=== PATIENT | male | born 1955 | race Caucasian/White ===

== ENCOUNTER 2022-08-19 15:43 | Observation (INO) ==
[2022-08-19] MEDS ORDERED: Magnesium Hydroxide LIQ 30 ML UDC PO PRN (16:23)
[2022-08-19] MEDS ORDERED: Ondansetron ODT 4 mg TAB 4 MG TAB PO PRN (16:23)
[2022-08-19] MEDS ORDERED: Lactulose 30 ml UDC PO PRN (16:23)
[2022-08-19] MEDS ORDERED: Ondansetron 4 mg VIAL 2 MG/ML 2 ml VIAL IV PRN (16:23)
[2022-08-19 17:12] LABS: ABS Basophils 0.1 10^3/ul (0-0.2); ABS Lymphocytes 0.7 10^3/ul (1.0-4.8); ABS Neutrophils 3.8 10^3/ul (1.5-7.7); Eosinophil % 0.5 %; Hematocrit 46 % (42-52); Lymphocyte % 11.8 %; Mean Corpuscular HGB Conc 35 g/dL (31-36); Mean Corpuscular Hemoglobin 37 pg (27-31); Mean Corpuscular Volume 105 fL (80-94); Mean Platelet Volume 7.4 fL (7.4-10.4); Nucleated Red Blood Cells % 0.2; Platelet Count 169 10^3/uL (150-450); Red Blood Count 4.36 10^6 /uL (4.18-5.48); Red Cell Distribution Width 16 % (10-15); White Blood Count 5.6 10^3/uL (3.5-10.8)
[2022-08-19 17:22] LABS: Activated Partial Thrombo Time 28.8 seconds (26.0-38.0); INR 1.21 (0.88-1.18)
[2022-08-19 17:38] LABS: Calcium 9.8 mg/dL (8.6-10.3); Potassium 4.1 mmol/L (3.5-5.0); eGFR CKD-EPI 47.8 (>60)
[2022-08-19] MEDS: Heparin 5000 UNITS/ML 1 mL VIAL SUBCUT SCH ×2 (21:52→22:06)
[2022-08-20] MEDS ORDERED: HYDROmorphone 0.5 MG/0.5 ML SYRINGE IV SCH ×2
[2022-08-20] MEDS ORDERED: Phenylephrine 40 mcg/mL 10mL (400mcg) SYRINGE IV SCH
[2022-08-20] MEDS ORDERED: HYDROmorphone 1 MG/1 ML SYRINGE IV SCH
[2022-08-20] MEDS ORDERED: Acetaminophen IV 1 GM/100ML 1,000 MG/100 ML BAG IV SCH
[2022-08-20] MEDS ORDERED: Dexamethasone IV 4 MG/ML VIAL 1 ml VIAL IV SLOW PU SCH
[2022-08-20] MEDS ORDERED: Ondansetron 4 mg VIAL 2 MG/ML 2 ml VIAL IV SCH
[2022-08-20] MEDS ORDERED: Propofol 10 MG/ML 20 ML BTL IV SCH
[2022-08-20] MEDS ORDERED: fentaNYL 100 mcg/2 ml 50 MCG/ML VIAL IV SCH ×3
[2022-08-20] MEDS ORDERED: Midazolam 2 mg/2 ml VIAL 1 mg/ml 2 ml VIAL (2 mg) IV SLOW PU SCH
[2022-08-20] MEDS ORDERED: Lidocaine 2% PF 5 ML VIAL INJ SCH
[2022-08-20] MEDS: Lactated Ringers 1000 ml BAG 1,000 ML IV SCH ×2 (08:55→20:47)
[2022-08-20] MEDS: Morphine 2 MG/ML SYRINGE IV PRN ×2 (08:56→21:12)
[2022-08-20] MEDS ORDERED: ceFAZolin 2 GM in NS PREMIX 2 GM/100 ML BAG IVPB ONE (12:06)
[2022-08-20] MEDS ORDERED: Ondansetron 4 mg VIAL 2 MG/ML 2 ml VIAL IV PRN ×2 (15:46→16:22)
[2022-08-20] MEDS ORDERED: Prochlorperazine 5 mg/ml 2 ml VIAL (10 mg) IV PRN (15:46)
[2022-08-20] MEDS ORDERED: Naloxone 0.4 mg VIAL 0.4 mg/ml 1 ml VIAL IV PRN ×2 (15:46→16:22)
[2022-08-20] MEDS: HYDROmorphone 1 MG/1 ML SYRINGE IV PRN ×2 (15:55→16:21)
[2022-08-20] MEDS: fentaNYL 100 mcg/2 ml 50 MCG/ML VIAL IV PRN ×3 (16:01→16:42)
[2022-08-20] MEDS ORDERED: fentaNYL 100 mcg/2 ml 50 MCG/ML VIAL IV PRN (16:22)
[2022-08-20] MEDS ORDERED: HYDROmorphone 1 MG/1 ML SYRINGE IV PRN (16:22)
[2022-08-20] MEDS: Vitamin THERAPEUTIC TAB PO SCH (20:08)
[2022-08-20] MEDS: Potassium Chlor 10 meq TAB PO SCH (20:08)
[2022-08-21 06:35] LABS: Hematocrit 39 % (42-52); Hemoglobin 13.5 g/dL (14.0-18.0); Mean Platelet Volume 7.2 fL (7.4-10.4); Platelet Count 151 10^3/uL (150-450)
[2022-08-21 07:12] LABS: Calcium 8.8 mg/dL (8.6-10.3); Potassium 5.1 mmol/L (3.5-5.0); eGFR CKD-EPI 46.7 (>60)
[2022-08-21] MEDS: Lactated Ringers 1000 ml BAG 1,000 ML IV SCH (07:25)
[2022-08-21 07:32] VITALS: BP 109/65
[2022-08-21] MEDS: Vitamin THERAPEUTIC TAB PO SCH (08:33)
[2022-08-21] MEDS: Potassium Chlor 10 meq TAB PO SCH (08:33)
[2022-08-21] MEDS ORDERED: Heparin 5000 UNITS/ML 1 mL VIAL SUBCUT SCH (09:00)
== END 2022-08-21 10:40 | disposition home or self-care (01) ==
LOC: ED 15:43 → EDHOLD 15:43 → SUATTDRO 16:23 → EDHOLD 18:46 → MCHPEDS 21:06 → SSU 08-20 18:57
PROVIDERS: ADMIT Orthopaedic Surgery Sports Medicine; ATTEND Internal Medicine

== ENCOUNTER 2022-10-01 05:21 | Inpatient (IN) ==
[2022-10-01] MEDS ORDERED: ceFAZolin 2 GM in NS PREMIX 2 GM/100 ML BAG IVPB ONE (05:54)
[2022-10-01] MEDS ORDERED: Buffered Lidocaine 1% SYRIN 1 ml INTRADERM ONE (06:00)
[2022-10-01] MEDS: Lactated Ringers 1000 ml BAG 1,000 ML IV SCH (06:05)
[2022-10-01] MEDS ORDERED: Midazolam 2 mg/2 ml VIAL 1 mg/ml 2 ml VIAL (2 mg) ONE (06:56)
[2022-10-01] MEDS ORDERED: fentaNYL 100 mcg/2 ml 50 MCG/ML VIAL ONE ×3 (06:56→09:47)
[2022-10-01] MEDS ORDERED: Propofol 10 MG/ML 20 ML BTL ONE (06:58)
[2022-10-01] MEDS ORDERED: Ondansetron 4 mg VIAL 2 MG/ML 2 ml VIAL ONE (06:58)
[2022-10-01] MEDS ORDERED: Sevoflurane BOTTLE ONE (06:58)
[2022-10-01] MEDS ORDERED: Dexamethasone IV 4 MG/ML VIAL 1 ml VIAL ONE (06:58)
[2022-10-01] MEDS ORDERED: Acetaminophen IV 1 GM/100ML 0 MG/0 ML BAG IV ONE (06:58)
[2022-10-01] MEDS ORDERED: Lidocaine 2% PF 5 ML VIAL ONE (06:58)
[2022-10-01] MEDS ORDERED: Bupivacaine 0.5% SDV PF 30ML VIAL ONE (07:14)
[2022-10-01] MEDS ORDERED: Naloxone 0.4 mg VIAL 0.4 mg/ml 1 ml VIAL IV PRN (09:15)
[2022-10-01] MEDS ORDERED: HYDROmorphone 1 MG/1 ML SYRINGE IV PRN (09:15)
[2022-10-01] MEDS ORDERED: fentaNYL 100 mcg/2 ml 50 MCG/ML VIAL IV PRN (09:15)
[2022-10-01] MEDS ORDERED: Ondansetron 4 mg VIAL 2 MG/ML 2 ml VIAL IV PRN ×2 (09:15→09:32)
[2022-10-01] MEDS ORDERED: Ondansetron ODT 4 mg TAB 4 MG TAB PO PRN (09:32)
[2022-10-01] MEDS ORDERED: Vancomycin 1,500 MG in NS 0.9% 250 ml 250 ML IVPB ONE (16:44)
[2022-10-01] MEDS ORDERED: Vancomycin per Pharmacy 1 EA NOTE FOLLOW UP PRN (16:53)
[2022-10-01] MEDS ORDERED: Vancomycin per Pharmacy 1 EA NOTE FOLLOW UP SCH (17:00)
[2022-10-01] MEDS ORDERED: Vancomycin 1,750 MG in NS 0.9% 500 ml BAG 500 ML IVPB ONE (17:00)
[2022-10-01 18:53] LABS: Creatinine, Serum 1.67 mg/dL (0.67-1.17)
[2022-10-01 20:46] LABS: ABS Lymphocytes 0.3 10^3/ul (1.0-4.8); ABS Monocytes 0.3 10^3/ul (0-0.8); ABS Neutrophils 4.2 10^3/ul (1.5-7.7); Hematocrit 38 % (42-52); Hemoglobin 12.8 g/dL (14.0-18.0); Lymphocyte % 5.6 %; Mean Corpuscular HGB Conc 33 g/dL (31-36); Mean Corpuscular Hemoglobin 36 pg (27-31); Mean Corpuscular Volume 108 fL (80-94); Mean Platelet Volume 8.1 fL (7.4-10.4); Platelet Count 181 10^3/uL (150-450); Red Blood Count 3.55 10^6 /uL (4.18-5.48); Red Cell Distribution Width 15 % (10-15); White Blood Count 4.7 10^3/uL (3.5-10.8)
[2022-10-01 22:21] LABS: Erythrocyte Sed Rate 18 mm/Hr (0-19)
[2022-10-02 07:08] LABS: Calcium 9.3 mg/dL (8.6-10.3); Creatinine, Serum 1.69 mg/dL (0.67-1.17); eGFR CKD-EPI 43.4 (>60)
[2022-10-02 07:11] LABS: Potassium 5.7 mmol/L (3.5-5.0)
[2022-10-02] MEDS: Potassium Chlor 10 meq TAB PO SCH (08:25)
[2022-10-02] MEDS: Vitamin THERAPEUTIC TAB PO SCH (08:25)
[2022-10-02] MEDS: Cholecalciferol (VIT D3) 1,000 unit TAB PO SCH (08:27)
[2022-10-02] MEDS: Vancomycin 1,500 MG in NS 0.9% 250 ml 250 ML IVPB SCH (14:55)
[2022-10-03 06:31] LABS: Creatinine, Serum 1.41 mg/dL (0.67-1.17); eGFR CKD-EPI 53.9 (>60)
[2022-10-03] MEDS: Cholecalciferol (VIT D3) 1,000 unit TAB PO SCH (08:42)
[2022-10-03] MEDS: Vitamin THERAPEUTIC TAB PO SCH (08:43)
[2022-10-03] MEDS: Potassium Chlor 10 meq TAB PO SCH (08:46)
[2022-10-03] MEDS ORDERED: Senna TAB 8.6 mg TAB PO PRN (09:17)
[2022-10-03] MEDS ORDERED: Polyethylene Glycol 3350 17 GM PACKET PO PRN (09:17)
[2022-10-03] MEDS: Mometasone/Formoter 100/5 MDI INH SCH (09:24)
[2022-10-03 09:50] LABS: Calcium 8.9 mg/dL (8.6-10.3); Potassium 4.2 mmol/L (3.5-5.0)
[2022-10-03] MEDS: Enoxaparin 40 MG/0.4 ML SYR SUBCUT SCH (10:36)
[2022-10-03 14:11] LABS: Folate 17.83 ng/mL (5.90-24.80)
[2022-10-03] MEDS: Vancomycin 1,500 MG in NS 0.9% 250 ml 250 ML IVPB SCH (17:31)
[2022-10-03] MEDS: Lactated Ringers 1000 ml BAG 1,000 ML IV SCH (21:29)
[2022-10-04] MEDS: Mometasone/Formoter 100/5 MDI INH SCH ×3 (04:52→19:24)
[2022-10-04] MEDS: Albuterol HFA INHALER 8 gm MDI INH PRN (05:37)
[2022-10-04] MEDS: Vitamin THERAPEUTIC TAB PO SCH (08:46)
[2022-10-04] MEDS: Cholecalciferol (VIT D3) 1,000 unit TAB PO SCH (08:47)
[2022-10-04 09:03] LABS: Hematocrit 33 % (42-52); Hemoglobin 11.2 g/dL (14.0-18.0); Mean Corpuscular HGB Conc 34 g/dL (31-36); Mean Corpuscular Hemoglobin 36 pg (27-31); Mean Corpuscular Volume 108 fL (80-94); Mean Platelet Volume 8.1 fL (7.4-10.4); Platelet Count 212 10^3/uL (150-450); Red Blood Count 3.08 10^6 /uL (4.18-5.48); Red Cell Distribution Width 15 % (10-15); White Blood Count 12.1 10^3/uL (3.5-10.8)
[2022-10-04 09:08] LABS: Creatinine, Serum 2.45 mg/dL (0.67-1.17); Potassium 4.3 mmol/L (3.5-5.0); eGFR CKD-EPI 27.8 (>60)
[2022-10-04] MEDS: Enoxaparin 40 MG/0.4 ML SYR SUBCUT SCH (10:56)
[2022-10-04 11:24] LABS: ABS Basophils 0.1 10^3/ul (0-0.2); ABS Eosinophils 0.1 10^3/ul (0-0.6); ABS Lymphocytes 1.2 10^3/ul (1.0-4.8); ABS Monocytes 1.9 10^3/ul (0-0.8); ABS Neutrophils 8.8 10^3/ul (1.5-7.7); Eosinophil % 1.2 %; Lymphocyte % 10.1 %; Nucleated Red Blood Cells % 0.1
[2022-10-04] MEDS ORDERED: Lactated Ringers 1000 ml BAG 1,000 ML IV SCH (12:00)
[2022-10-04 15:19] LABS: Creatinine, Serum 2.92 mg/dL (0.67-1.17); Vancomycin Trough 22.7 mcg/mL; eGFR CKD-EPI 22.5 (>60)
[2022-10-04] MEDS: Vancomycin Trough Check NOTE FOLLOW UP ONE ×2 (15:27→15:31)
[2022-10-04] MEDS: Vancomycin 1,500 MG in NS 0.9% 250 ml 250 ML IVPB SCH (15:32)
[2022-10-04 18:22] LABS: Urine Appearance Cloudy; Urine Bilirubin Negative (Negative); Urine Blood Negative (Negative); Urine Color Amber; Urine Glucose Negative (Negative); Urine Ketones Negative (Negative); Urine Nitrite Negative (Negative); Urine Protein Negative (Negative); Urine Specific Gravity 1.017 (1.002-1.030); Urine Urobilinogen Negative (Negative)
[2022-10-04 20:46] LABS: Hematocrit 27 % (42-52); Hemoglobin 9.2 g/dL (14.0-18.0)
[2022-10-05 01:24] LABS: Calcium 8.7 mg/dL (8.6-10.3); eGFR CKD-EPI 21.8 (>60)
[2022-10-05] MEDS ORDERED: Lactated Ringers 1000 ml BAG 1,000 ML IV ONE ×2 (01:26→17:40)
[2022-10-05 01:52] LABS: Hematocrit 28 % (42-52); Hemoglobin 9.6 g/dL (14.0-18.0)
[2022-10-05 01:57] LABS: Albumin 2.5 g/dL (3.2-5.2); Albumin/Globulin Ratio 0.8 (1-3); Phosphorus 5.7 mg/dL (2.5-5.0); Total Bilirubin 1.8 mg/dL (0.2-1.0); Total Protein 5.5 g/dL (6.4-8.9)
[2022-10-05] MEDS: Albuterol HFA INHALER 8 gm MDI INH PRN ×2 (05:13→16:47)
[2022-10-05] MEDS: Acetaminophen IV 1 GM/100ML 1,000 MG/100 ML BAG IV SCH ×3 (05:23→21:29)
[2022-10-05 05:42] LABS: ABS Eosinophils 0.2 10^3/ul (0-0.6); ABS Lymphocytes 0.9 10^3/ul (1.0-4.8); ABS Monocytes 1.4 10^3/ul (0-0.8); ABS Neutrophils 6.5 10^3/ul (1.5-7.7); Eosinophil % 2.7 %; Hematocrit 29 % (42-52); Hemoglobin 9.7 g/dL (14.0-18.0); Lymphocyte % 10.3 %; Mean Corpuscular HGB Conc 34 g/dL (31-36); Mean Corpuscular Hemoglobin 36 pg (27-31); Mean Corpuscular Volume 108 fL (80-94); Mean Platelet Volume 7.5 fL (7.4-10.4); Platelet Count 187 10^3/uL (150-450); Red Blood Count 2.66 10^6 /uL (4.18-5.48); Red Cell Distribution Width 15 % (10-15); White Blood Count 9.2 10^3/uL (3.5-10.8)
[2022-10-05 06:14] LABS: Calcium 8.6 mg/dL (8.6-10.3); Creatinine, Serum 2.69 mg/dL (0.67-1.17); Potassium 4.2 mmol/L (3.5-5.0); eGFR CKD-EPI 24.8 (>60)
[2022-10-05] MEDS: Vitamin THERAPEUTIC TAB PO SCH (07:38)
[2022-10-05] MEDS: Cholecalciferol (VIT D3) 1,000 unit TAB PO SCH (07:38)
[2022-10-05] MEDS: Mometasone/Formoter 100/5 MDI INH SCH ×2 (09:09→20:00)
[2022-10-05] MEDS ORDERED: Morphine 2 MG/ML SYRINGE IV ONE (09:58)
[2022-10-05] MEDS ORDERED: Lidocaine 1% VIAL 10 MG/ML VIAL 30 ML ONE (09:59)
[2022-10-05] MEDS ORDERED: Morphine 2 MG/ML SYRINGE ONE (10:00)
[2022-10-05] MEDS ORDERED: fentaNYL 100 mcg/2 ml 50 MCG/ML VIAL ONE (10:10)
[2022-10-05] MEDS ORDERED: Midazolam 2 mg/2 ml VIAL 1 mg/ml 2 ml VIAL (2 mg) ONE (10:10)
[2022-10-05] MEDS ORDERED: Midazolam 2 mg/2 ml VIAL 1 mg/ml 2 ml VIAL (2 mg) IV SLOW PU ONE (11:01)
[2022-10-05] MEDS ORDERED: fentaNYL 100 mcg/2 ml 50 MCG/ML VIAL IV SLOW PU ONE (11:01)
[2022-10-05 11:30] LABS: Hematocrit 29 % (42-52); Hemoglobin 9.8 g/dL (14.0-18.0)
[2022-10-05] MEDS ORDERED: Vancomycin Random Level NOTE FOLLOW UP ONE (12:00)
[2022-10-05 12:59] LABS: Urine Appearance Clear; Urine Bilirubin Negative (Negative); Urine Blood Negative (Negative); Urine Color Yellow; Urine Glucose Negative (Negative); Urine Ketones Negative (Negative); Urine Nitrite Negative (Negative); Urine Protein Negative (Negative); Urine Specific Gravity 1.014 (1.002-1.030); Urine Urobilinogen Negative (Negative)
[2022-10-05 13:15] LABS: Urine Creatinine Concentration 112.35 mg/dL
[2022-10-05 14:57] LABS: ABS Basophils 0.1 10^3/ul (0-0.2); ABS Eosinophils 0.3 10^3/ul (0-0.6); ABS Lymphocytes 0.8 10^3/ul (1.0-4.8); ABS Monocytes 1.1 10^3/ul (0-0.8); ABS Neutrophils 5.7 10^3/ul (1.5-7.7); Eosinophil % 4.1 %; Hematocrit 27 % (42-52); Lymphocyte % 9.8 %; Mean Corpuscular HGB Conc 34 g/dL (31-36); Mean Corpuscular Hemoglobin 36 pg (27-31); Mean Corpuscular Volume 107 fL (80-94); Mean Platelet Volume 7.3 fL (7.4-10.4); Platelet Count 182 10^3/uL (150-450); Red Blood Count 2.49 10^6 /uL (4.18-5.48); Red Cell Distribution Width 15 % (10-15)
[2022-10-05] MEDS ORDERED: Vancomycin 1000 MG in NS 0.9% 250 ML IVPB ONE (17:00)
[2022-10-05 18:10] LABS: ABS Eosinophils 0.3 10^3/ul (0-0.6); ABS Lymphocytes 0.7 10^3/ul (1.0-4.8); ABS Monocytes 1.4 10^3/ul (0-0.8); ABS Neutrophils 5.9 10^3/ul (1.5-7.7); Eosinophil % 3.6 %; Hematocrit 27 % (42-52); Hemoglobin 8.9 g/dL (14.0-18.0); Lymphocyte % 8.1 %; Mean Corpuscular HGB Conc 33 g/dL (31-36); Mean Corpuscular Hemoglobin 36 pg (27-31); Mean Corpuscular Volume 108 fL (80-94); Mean Platelet Volume 7.9 fL (7.4-10.4); Platelet Count 180 10^3/uL (150-450); Red Blood Count 2.49 10^6 /uL (4.18-5.48); Red Cell Distribution Width 15 % (10-15); White Blood Count 8.3 10^3/uL (3.5-10.8)
[2022-10-05 19:05] LABS: INR 1.37 (0.88-1.18)
[2022-10-05] MEDS: Lactated Ringers 1000 ml BAG 1,000 ML IV SCH (20:25)
[2022-10-05 22:25] LABS: Hematocrit 26 % (42-52); Hemoglobin 8.5 g/dL (14.0-18.0)
[2022-10-06] MEDS: Acetaminophen IV 1 GM/100ML 1,000 MG/100 ML BAG IV SCH ×3 (05:45→21:41)
[2022-10-06] MEDS: Lactated Ringers 1000 ml BAG 1,000 ML IV SCH ×3 (05:56→18:04)
[2022-10-06 06:09] LABS: ABS Eosinophils 0.4 10^3/ul (0-0.6); ABS Lymphocytes 0.5 10^3/ul (1.0-4.8); ABS Monocytes 1.1 10^3/ul (0-0.8); ABS Neutrophils 5.3 10^3/ul (1.5-7.7); Eosinophil % 5.3 %; Hematocrit 25 % (42-52); Hemoglobin 8.5 g/dL (14.0-18.0); Lymphocyte % 6.6 %; Mean Corpuscular HGB Conc 34 g/dL (31-36); Mean Corpuscular Hemoglobin 36 pg (27-31); Mean Corpuscular Volume 107 fL (80-94); Mean Platelet Volume 7.3 fL (7.4-10.4); Platelet Count 151 10^3/uL (150-450); Red Blood Count 2.33 10^6 /uL (4.18-5.48); Red Cell Distribution Width 15 % (10-15); White Blood Count 7.2 10^3/uL (3.5-10.8)
[2022-10-06 06:36] LABS: Creatinine, Serum 1.84 mg/dL (0.67-1.17); Magnesium 1.9 mg/dL (1.9-2.7); Potassium 4.2 mmol/L (3.5-5.0); eGFR CKD-EPI 39.2 (>60)
[2022-10-06] MEDS: Mometasone/Formoter 100/5 MDI INH SCH ×2 (07:55→20:44)
[2022-10-06] MEDS: Cholecalciferol (VIT D3) 1,000 unit TAB PO SCH (09:17)
[2022-10-06] MEDS: Vitamin THERAPEUTIC TAB PO SCH (09:17)
[2022-10-06] MEDS ORDERED: Vancomycin Random Level NOTE FOLLOW UP ONE (16:30)
[2022-10-06] MEDS ORDERED: Vancomycin 750 MG in NS 0.9% 250 ML IVPB ONE (19:00)
[2022-10-07 04:31] LABS: Red Blood Count 2.44 10^6 /uL (4.18-5.48)
[2022-10-07 04:34] LABS: ABS Eosinophils 0.5 10^3/ul (0-0.6); ABS Lymphocytes 0.6 10^3/ul (1.0-4.8); ABS Monocytes 0.9 10^3/ul (0-0.8); Eosinophil % 10.6 %; Hematocrit 26 % (42-52); Hemoglobin 8.8 g/dL (14.0-18.0); Lymphocyte % 11.2 %; Mean Corpuscular HGB Conc 34 g/dL (31-36); Mean Corpuscular Hemoglobin 36 pg (27-31); Mean Corpuscular Volume 108 fL (80-94); Mean Platelet Volume 7.3 fL (7.4-10.4); Nucleated Red Blood Cells % 0.1; Platelet Count 156 10^3/uL (150-450); Red Cell Distribution Width 15 % (10-15); White Blood Count 4.9 10^3/uL (3.5-10.8)
[2022-10-07 04:56] LABS: Calcium 8.2 mg/dL (8.6-10.3); Creatinine, Serum 1.21 mg/dL (0.67-1.17); Magnesium 1.9 mg/dL (1.9-2.7); Potassium 4.2 mmol/L (3.5-5.0); eGFR CKD-EPI 64.8 (>60)
[2022-10-07] MEDS: Acetaminophen IV 1 GM/100ML 1,000 MG/100 ML BAG IV SCH (05:53)
[2022-10-07] MEDS: Cholecalciferol (VIT D3) 1,000 unit TAB PO SCH (08:02)
[2022-10-07] MEDS: Vitamin THERAPEUTIC TAB PO SCH (08:02)
[2022-10-07] MEDS: Mometasone/Formoter 100/5 MDI INH SCH ×2 (08:16→19:23)
[2022-10-07 09:50] LABS: C Reactive Protein 126.93 mg/L (<8.01)
[2022-10-07] MEDS ORDERED: Vancomycin 750 MG in NS 0.9% 250 ML IVPB ONE (11:00)
[2022-10-07] MEDS ORDERED: Vancomycin Random Level NOTE FOLLOW UP ONE (14:30)
[2022-10-08 05:37] LABS: Red Blood Count 2.34 10^6 /uL (4.18-5.48)
[2022-10-08 05:40] LABS: Hematocrit 26 % (42-52); Hemoglobin 8.4 g/dL (14.0-18.0); Mean Corpuscular HGB Conc 33 g/dL (31-36); Mean Corpuscular Hemoglobin 36 pg (27-31); Mean Corpuscular Volume 109 fL (80-94); Mean Platelet Volume 6.8 fL (7.4-10.4); Platelet Count 142 10^3/uL (150-450); Red Cell Distribution Width 15 % (10-15); White Blood Count 4.3 10^3/uL (3.5-10.8)
[2022-10-08] MEDS ORDERED: Vancomycin Random Level NOTE FOLLOW UP ONE (06:00)
[2022-10-08 06:23] LABS: Albumin 2.2 g/dL (3.2-5.2); Albumin/Globulin Ratio 0.9 (1-3); Calcium 8.3 mg/dL (8.6-10.3); Creatinine, Serum 0.96 mg/dL (0.67-1.17); Globulin 2.5 g/dL (2-4); Potassium 4.4 mmol/L (3.5-5.0); Total Protein 4.7 g/dL (6.4-8.9); eGFR CKD-EPI 85.6 (>60)
[2022-10-08 06:24] LABS: Creatinine, Serum 0.96 mg/dL (0.67-1.17); Vancomycin Random 12.7 mcg/mL; eGFR CKD-EPI 85.6 (>60)
[2022-10-08] MEDS: Cholecalciferol (VIT D3) 1,000 unit TAB PO SCH (08:02)
[2022-10-08] MEDS: Vitamin THERAPEUTIC TAB PO SCH (08:03)
[2022-10-08] MEDS: Mometasone/Formoter 100/5 MDI INH SCH ×2 (08:23→19:05)
[2022-10-08] MEDS ORDERED: Vancomycin 1000 MG in NS 0.9% 250 ML IVPB SCH (11:00)
[2022-10-08] MEDS: Vancomycin 1000 MG in NS 0.9% 250 ML IVPB SCH (11:25)
[2022-10-08 16:21] LABS: ABS Eosinophils 0.6 10^3/ul (0-0.6); ABS Lymphocytes 0.5 10^3/ul (1.0-4.8); ABS Monocytes 1.1 10^3/ul (0-0.8); ABS Neutrophils 2.5 10^3/ul (1.5-7.7); Hematocrit 26 % (42-52); Hemoglobin 8.5 g/dL (14.0-18.0); Lymphocyte % 10.6 %; Mean Corpuscular HGB Conc 33 g/dL (31-36); Mean Corpuscular Hemoglobin 36 pg (27-31); Mean Corpuscular Volume 108 fL (80-94); Mean Platelet Volume 7.2 fL (7.4-10.4); Platelet Count 150 10^3/uL (150-450); Red Blood Count 2.37 10^6 /uL (4.18-5.48); Red Cell Distribution Width 15 % (10-15); White Blood Count 4.7 10^3/uL (3.5-10.8)
[2022-10-08 16:46] LABS: Creatinine, Serum 0.92 mg/dL (0.67-1.17)
[2022-10-08 16:46] LABS: Activated Partial Thrombo Time 27.3 seconds (26.0-38.0); INR 1.23 (0.88-1.18)
[2022-10-08] MEDS: Heparin 5000 UNITS/ML 1 mL VIAL SUBCUT SCH (19:55)
[2022-10-09] MEDS: Vancomycin 1000 MG in NS 0.9% 250 ML IVPB SCH (05:46)
[2022-10-09 06:28] LABS: Potassium 4.3 mmol/L (3.5-5.0)
[2022-10-09 06:29] LABS: Calcium 8.2 mg/dL (8.6-10.3); Creatinine, Serum 0.96 mg/dL (0.67-1.17); Magnesium 1.7 mg/dL (1.9-2.7); eGFR CKD-EPI 85.6 (>60)
[2022-10-09] MEDS: Mometasone/Formoter 100/5 MDI INH SCH (07:44)
[2022-10-09] MEDS: Vitamin THERAPEUTIC TAB PO SCH (08:41)
[2022-10-09] MEDS: Cholecalciferol (VIT D3) 1,000 unit TAB PO SCH (08:42)
[2022-10-09] MEDS: Heparin 5000 UNITS/ML 1 mL VIAL SUBCUT SCH ×2 (08:42→21:19)
[2022-10-09] MEDS ORDERED: Magnesium Sulfate 2 gm BAG 2 GM/50 ML BAG IVPB ONE (09:10)
[2022-10-10 04:18] LABS: Hematocrit 26 % (42-52); Hemoglobin 8.4 g/dL (14.0-18.0); Mean Corpuscular HGB Conc 33 g/dL (31-36); Mean Corpuscular Hemoglobin 35 pg (27-31); Mean Corpuscular Volume 108 fL (80-94); Platelet Count 156 10^3/uL (150-450); Red Blood Count 2.37 10^6 /uL (4.18-5.48); Red Cell Distribution Width 15 % (10-15); White Blood Count 4.7 10^3/uL (3.5-10.8)
[2022-10-10 04:52] LABS: Blood Urea Nitrogen 19 mg/dL (6-24); CO2 Carbon Dioxide 30 mmol/L (22-32); Calcium 8.2 mg/dL (8.6-10.3); Chloride 103 mmol/L (101-111); Creatinine, Serum 1.01 mg/dL (0.67-1.17); Glucose 94 mg/dL (70-100); Magnesium 1.9 mg/dL (1.9-2.7); Potassium 4.7 mmol/L (3.5-5.0); Sodium 132 mmol/L (135-145); eGFR CKD-EPI 80.5 (>60)
[2022-10-10] MEDS: Mometasone/Formoter 100/5 MDI INH SCH ×3 (05:50→19:24)
[2022-10-10] MEDS: Vancomycin 1000 MG in NS 0.9% 250 ML IVPB SCH (05:51)
[2022-10-10] MEDS: Heparin 5000 UNITS/ML 1 mL VIAL SUBCUT SCH ×3 (09:40→22:02)
[2022-10-10] MEDS: Vitamin THERAPEUTIC TAB PO SCH (09:41)
[2022-10-10] MEDS: Aspirin EC 81 mg TAB.EC (enteric coated) PO SCH (09:41)
[2022-10-10] MEDS: Cholecalciferol (VIT D3) 1,000 unit TAB PO SCH (09:41)
[2022-10-11] MEDS ORDERED: Vancomycin Trough Check NOTE FOLLOW UP ONE (05:30)
[2022-10-11] MEDS: Vancomycin 1000 MG in NS 0.9% 250 ML IVPB SCH ×2 (06:14→09:09)
[2022-10-11] MEDS: Heparin 5000 UNITS/ML 1 mL VIAL SUBCUT SCH ×3 (06:16→21:49)
[2022-10-11 06:46] LABS: ABS Basophils 0.1 10^3/ul (0-0.2); ABS Eosinophils 0.7 10^3/ul (0-0.6); ABS Lymphocytes 0.7 10^3/ul (1.0-4.8); ABS Monocytes 0.9 10^3/ul (0-0.8); ABS Neutrophils 2.7 10^3/ul (1.5-7.7); Eosinophil % 14.8 %; Hematocrit 26 % (42-52); Hemoglobin 8.7 g/dL (14.0-18.0); Lymphocyte % 14.1 %; Mean Corpuscular HGB Conc 33 g/dL (31-36); Mean Corpuscular Hemoglobin 36 pg (27-31); Mean Corpuscular Volume 108 fL (80-94); Mean Platelet Volume 7.3 fL (7.4-10.4); Platelet Count 162 10^3/uL (150-450); Red Blood Count 2.43 10^6 /uL (4.18-5.48); Red Cell Distribution Width 15 % (10-15)
[2022-10-11 06:59] LABS: Calcium 8.1 mg/dL (8.6-10.3); Creatinine, Serum 0.97 mg/dL (0.67-1.17); eGFR CKD-EPI 84.5 (>60)
[2022-10-11] MEDS: Mometasone/Formoter 100/5 MDI INH SCH ×2 (07:56→20:16)
[2022-10-11] MEDS ORDERED: Furosemide 40 mg/4 ml IV VIAL IV ONE (08:41)
[2022-10-11] MEDS: Cholecalciferol (VIT D3) 1,000 unit TAB PO SCH (09:14)
[2022-10-11] MEDS: Vitamin THERAPEUTIC TAB PO SCH (09:14)
[2022-10-11] MEDS: Aspirin EC 81 mg TAB.EC (enteric coated) PO SCH (09:14)
[2022-10-12] MEDS: Heparin 5000 UNITS/ML 1 mL VIAL SUBCUT SCH ×3 (04:51→22:45)
[2022-10-12 05:17] LABS: Hematocrit 26 % (42-52); Hemoglobin 8.4 g/dL (14.0-18.0); Mean Corpuscular HGB Conc 33 g/dL (31-36); Mean Corpuscular Hemoglobin 35 pg (27-31); Mean Corpuscular Volume 108 fL (80-94); Platelet Count 160 10^3/uL (150-450); Red Blood Count 2.39 10^6 /uL (4.18-5.48); Red Cell Distribution Width 15 % (10-15); White Blood Count 5.8 10^3/uL (3.5-10.8)
[2022-10-12 05:28] LABS: Vancomycin Trough 9.7 mcg/mL
[2022-10-12 05:57] LABS: Calcium 7.8 mg/dL (8.6-10.3); Creatinine, Serum 0.98 mg/dL (0.67-1.17); Magnesium 1.5 mg/dL (1.9-2.7); Potassium 3.7 mmol/L (3.5-5.0); eGFR CKD-EPI 83.5 (>60)
[2022-10-12] MEDS: Vancomycin 1,250 MG in NS 0.9% 250 ml 250 ML IVPB SCH (05:57)
[2022-10-12] MEDS ORDERED: Potassium Chlor 20 meq TAB.ER PO ONE (07:44)
[2022-10-12] MEDS: Cholecalciferol (VIT D3) 1,000 unit TAB PO SCH (08:06)
[2022-10-12] MEDS: Aspirin EC 81 mg TAB.EC (enteric coated) PO SCH (08:06)
[2022-10-12] MEDS: Vitamin THERAPEUTIC TAB PO SCH (08:07)
[2022-10-12] MEDS: Mometasone/Formoter 100/5 MDI INH SCH ×2 (08:13→19:54)
[2022-10-12] MEDS ORDERED: Magnesium Hydroxide LIQ 30 ML UDC PO PRN (16:56)
[2022-10-13] MEDS: Heparin 5000 UNITS/ML 1 mL VIAL SUBCUT SCH (04:59)
[2022-10-13] MEDS: Vancomycin 1,250 MG in NS 0.9% 250 ml 250 ML IVPB SCH (04:59)
[2022-10-13 05:38] LABS: Calcium 8.1 mg/dL (8.6-10.3); Creatinine, Serum 1.03 mg/dL (0.67-1.17); Magnesium 1.7 mg/dL (1.9-2.7); Potassium 4.2 mmol/L (3.5-5.0); eGFR CKD-EPI 78.6 (>60)
[2022-10-13] MEDS: Mometasone/Formoter 100/5 MDI INH SCH (08:12)
[2022-10-13] MEDS: Cholecalciferol (VIT D3) 1,000 unit TAB PO SCH (09:49)
[2022-10-13] MEDS: Vitamin THERAPEUTIC TAB PO SCH (09:50)
[2022-10-13] MEDS: Aspirin EC 81 mg TAB.EC (enteric coated) PO SCH (09:50)
[2022-10-13 10:36] VITALS: BP 118/65
[2022-10-15] MEDS ORDERED: Vancomycin Trough Check NOTE FOLLOW UP ONE (05:30)
== END 2022-10-13 13:00 | disposition home or self-care (01) | DRG 506 ==
LOC: OR 05:21 → SSU 05:21 → ICU 10-05 01:22
PROVIDERS: ADMIT Orthopaedic Surgery; ATTEND Orthopaedic Surgery

== ENCOUNTER 2023-01-07 12:13 | Inpatient (IN) ==
[2023-01-07 13:51] LABS: ABS Lymphocytes 0.5 10^3/uL (1.0-4.8); ABS Monocytes 0.9 10^3/uL (0.0-1.1); ABS Neutrophils 3.9 10^3/uL (1.5-7.6); ABS Nucleated RBC 0.02 10^3/ul; Eosinophil % 0.4 %; Hematocrit 34.3 % (38-53); Hemoglobin 11.6 g/dL (13.2-16.3); Mean Corpuscular Hemoglobin 33.1 pg (27-33); Mean Corpuscular Hgb Conc 33.8 g/dL (31-36); Mean Corpuscular Volume 97.9 fL (80-97); Mean Platelet Volume 7.1 fL (7.5-11.2); Nucleated Red Blood Cells % 0.3 /100 WBC (0.0-0.4); Platelet Count 205 10^3/uL (150-450); Red Blood Count 3.51 10^6/uL (4.06-5.63); Red Cell Distribution Width 20.2 % (12-17); White Blood Count 5.4 10^3/uL (3.6-10.2)
[2023-01-07 14:05] LABS: INR 1.2 (0.88-1.18)
[2023-01-07 14:38] LABS: ALT 18 U/L (7-52); AST 47 U/L (13-39); Albumin 2.9 g/dL (3.2-5.2); Albumin/Globulin Ratio 0.7 (1-3); Alkaline Phosphatase 134 U/L (35-149); Anion Gap 10 mmol/L (2-16); Blood Urea Nitrogen 40 mg/dL (6-24); CO2 Carbon Dioxide 26 mmol/L (22-32); Calcium 9.7 mg/dL (8.6-10.3); Chloride 96 mmol/L (101-111); Creatine Kinase 37 U/L (10-223); Creatinine, Serum 1.93 mg/dL (0.67-1.17); Globulin 3.9 g/dL (2-4); Glucose 79 mg/dL (70-100); Potassium 4.9 mmol/L (3.5-5.0); Sodium 132 mmol/L (135-145); Total Protein 6.8 g/dL (6.4-8.9)
[2023-01-07] MEDS ORDERED: Lactated Ringers 1000 ml BAG 1,000 ML IV ONE ×2 (14:53→20:39)
[2023-01-07] MEDS ORDERED: oxyCODONE/Acetamin 5/325 mg TAB PO ONE (15:12)
[2023-01-07] MEDS ORDERED: Heparin DRIP 25,000 UNITS BAG 25,000 UNITS/500 ML BAG IV SCH (18:45)
[2023-01-07] MEDS ORDERED: Heparin 5000 UNITS/ML 1 mL VIAL IV SCH (19:00)
[2023-01-07 19:24] LABS: Vitamin D Total 25(OH) > 120.0 ng/mL (20-50)
[2023-01-08 00:44] LABS: ABS Eosinophils 0.2 10^3/uL (0.0-0.5); ABS Lymphocytes 0.9 10^3/uL (1.0-4.8); ABS Monocytes 0.9 10^3/uL (0.0-1.1); ABS Neutrophils 2.6 10^3/uL (1.5-7.6); ABS Nucleated RBC 0.01 10^3/ul; Eosinophil % 3.3 %; Hematocrit 27.5 % (38-53); Hemoglobin 9.6 g/dL (13.2-16.3); Lymphocyte % 20.1 %; Mean Corpuscular Hemoglobin 33.7 pg (27-33); Mean Corpuscular Hgb Conc 35.1 g/dL (31-36); Mean Corpuscular Volume 96.2 fL (80-97); Mean Platelet Volume 7.8 fL (7.5-11.2); Nucleated Red Blood Cells % 0.2 /100 WBC (0.0-0.4); Platelet Count 166 10^3/uL (150-450); Red Blood Count 2.86 10^6/uL (4.06-5.63); Red Cell Distribution Width 20.1 % (12-17); White Blood Count 4.6 10^3/uL (3.6-10.2)
[2023-01-08 04:37] LABS: ABS Basophils 0.1 10^3/uL (0.0-0.1); ABS Eosinophils 0.2 10^3/uL (0.0-0.5); ABS Lymphocytes 1.2 10^3/uL (1.0-4.8); ABS Monocytes 0.8 10^3/uL (0.0-1.1); ABS Neutrophils 2.4 10^3/uL (1.5-7.6); ABS Nucleated RBC 0.02 10^3/ul; Eosinophil % 4.5 %; Hematocrit 29.6 % (38-53); Hemoglobin 10.2 g/dL (13.2-16.3); Lymphocyte % 25.3 %; Mean Corpuscular Hemoglobin 33.7 pg (27-33); Mean Corpuscular Hgb Conc 34.6 g/dL (31-36); Mean Corpuscular Volume 97.4 fL (80-97); Mean Platelet Volume 7.2 fL (7.5-11.2); Nucleated Red Blood Cells % 0.3 /100 WBC (0.0-0.4); Platelet Count 185 10^3/uL (150-450); Red Blood Count 3.04 10^6/uL (4.06-5.63); Red Cell Distribution Width 20.5 % (12-17); White Blood Count 4.6 10^3/uL (3.6-10.2)
[2023-01-08 05:18] LABS: Albumin 1.9 g/dL (3.2-5.2); Albumin/Globulin Ratio 0.7 (1-3); Calcium 7.1 mg/dL (8.6-10.3); Creatinine, Serum 1.32 mg/dL (0.67-1.17); Globulin 2.9 g/dL (2-4); Magnesium 1.5 mg/dL (1.9-2.7); Potassium 3.3 mmol/L (3.5-5.0); Total Bilirubin 1.6 mg/dL (0.2-1.0); Total Protein 4.8 g/dL (6.4-8.9); eGFR CKD-EPI 58.4 (>60)
[2023-01-08] MEDS ORDERED: Magnesium Sulf 4 GM/100 ML IV 4,000 MG/100 ML BAG IVPB ONE (06:04)
[2023-01-08] MEDS ORDERED: Potassium Chlor 20 meq TAB.ER PO ONE (06:04)
[2023-01-08 07:01] LABS: ABS Eosinophils 0.2 10^3/uL (0.0-0.5); ABS Lymphocytes 0.7 10^3/uL (1.0-4.8); ABS Monocytes 0.7 10^3/uL (0.0-1.1); ABS Neutrophils 2.2 10^3/uL (1.5-7.6); ABS Nucleated RBC 0.01 10^3/ul; Eosinophil % 4.1 %; Hematocrit 27.4 % (38-53); Hemoglobin 9.4 g/dL (13.2-16.3); Lymphocyte % 19.4 %; Mean Corpuscular Hemoglobin 33.8 pg (27-33); Mean Corpuscular Hgb Conc 34.4 g/dL (31-36); Mean Corpuscular Volume 98.3 fL (80-97); Mean Platelet Volume 7.1 fL (7.5-11.2); Nucleated Red Blood Cells % 0.2 /100 WBC (0.0-0.4); Platelet Count 171 10^3/uL (150-450); Red Blood Count 2.79 10^6/uL (4.06-5.63); White Blood Count 3.9 10^3/uL (3.6-10.2)
[2023-01-08] MEDS: Lactated Ringers 1000 ml BAG 1,000 ML IV SCH ×2 (08:09→20:25)
[2023-01-08] MEDS ORDERED: Potassium EFFERVES 25 meq TAB PO ONE (08:27)
[2023-01-08] MEDS ORDERED: Heparin 2 UNITS/ML 1000 mls 1,000 ML IV ONE (13:08)
[2023-01-08] MEDS ORDERED: Iodixanol (CONTRAST) 320 MG/ML 100 ML SDV IV ONE (15:52)
[2023-01-08] MEDS ORDERED: Magnesium Hydroxide LIQ 30 ML UDC PO PRN (17:33)
[2023-01-08] MEDS ORDERED: Senna TAB 8.6 mg TAB PO PRN (17:33)
[2023-01-08 18:01] LABS: ABS Eosinophils 0.1 10^3/uL (0.0-0.5); ABS Lymphocytes 0.7 10^3/uL (1.0-4.8); ABS Monocytes 0.9 10^3/uL (0.0-1.1); ABS Neutrophils 3.5 10^3/uL (1.5-7.6); ABS Nucleated RBC 0.01 10^3/ul; Hematocrit 31.3 % (38-53); Hemoglobin 10.8 g/dL (13.2-16.3); Lymphocyte % 12.9 %; Mean Corpuscular Hgb Conc 34.6 g/dL (31-36); Mean Corpuscular Volume 98.3 fL (80-97); Mean Platelet Volume 6.8 fL (7.5-11.2); Nucleated Red Blood Cells % 0.1 /100 WBC (0.0-0.4); Platelet Count 200 10^3/uL (150-450); Red Blood Count 3.18 10^6/uL (4.06-5.63); White Blood Count 5.1 10^3/uL (3.6-10.2)
[2023-01-09 00:48] LABS: Direct Bilirubin 0.4 mg/dL (0.03-0.18)
[2023-01-09 09:05] LABS: ABS Eosinophils 0.1 10^3/uL (0.0-0.5); ABS Lymphocytes 0.9 10^3/uL (1.0-4.8); ABS Monocytes 1.1 10^3/uL (0.0-1.1); ABS Neutrophils 3.1 10^3/uL (1.5-7.6); ABS Nucleated RBC 0.02 10^3/ul; Eosinophil % 2.8 %; Hematocrit 28.7 % (38-53); Hemoglobin 9.9 g/dL (13.2-16.3); Lymphocyte % 16.6 %; Mean Corpuscular Hemoglobin 33.5 pg (27-33); Mean Corpuscular Hgb Conc 34.4 g/dL (31-36); Mean Corpuscular Volume 97.3 fL (80-97); Mean Platelet Volume 7.2 fL (7.5-11.2); Nucleated Red Blood Cells % 0.4 /100 WBC (0.0-0.4); Platelet Count 187 10^3/uL (150-450); Red Blood Count 2.95 10^6/uL (4.06-5.63); Red Cell Distribution Width 20.3 % (12-17); White Blood Count 5.3 10^3/uL (3.6-10.2)
[2023-01-09] MEDS: Lactated Ringers 1000 ml BAG 1,000 ML IV SCH (09:37)
[2023-01-09 09:42] LABS: Calcium 8.9 mg/dL (8.6-10.3); Creatinine, Serum 1.42 mg/dL (0.67-1.17); Magnesium 2.1 mg/dL (1.9-2.7); Potassium 4.4 mmol/L (3.5-5.0); eGFR CKD-EPI 53.5 (>60)
[2023-01-09 14:15] LABS: Calcium (PTH Intact) 8.7 mg/dL (8.6-10.3)
[2023-01-09 14:24] LABS: PSA Screening Total 1.86 ng/mL (0-4.000)
[2023-01-09 18:26] LABS: Urine Appearance Clear; Urine Bilirubin Negative (Negative); Urine Blood Negative (Negative); Urine Color Yellow; Urine Glucose Negative (Negative); Urine Ketones Negative (Negative); Urine Nitrite Negative (Negative); Urine Protein Negative (Negative); Urine Specific Gravity 1.027 (1.002-1.030); Urine Urobilinogen Negative (Negative)
[2023-01-10 07:09] LABS: Calcium 8.6 mg/dL (8.6-10.3); Creatinine, Serum 1.38 mg/dL (0.67-1.17); Magnesium 1.9 mg/dL (1.9-2.7); Potassium 4.3 mmol/L (3.5-5.0); eGFR CKD-EPI 55.4 (>60)
[2023-01-10] MEDS ORDERED: NS 0.9% 1000 ml BAG 1,000 ML IV SCH (07:30)
[2023-01-10 07:54] LABS: ABS Eosinophils 0.2 10^3/uL (0.0-0.5); ABS Lymphocytes 0.8 10^3/uL (1.0-4.8); ABS Monocytes 0.9 10^3/uL (0.0-1.1); ABS Neutrophils 2.2 10^3/uL (1.5-7.6); ABS Nucleated RBC 0.02 10^3/ul; Eosinophil % 4.3 %; Hematocrit 28.2 % (38-53); Hemoglobin 9.7 g/dL (13.2-16.3); Lymphocyte % 19.9 %; Mean Corpuscular Hemoglobin 33.6 pg (27-33); Mean Corpuscular Hgb Conc 34.6 g/dL (31-36); Mean Platelet Volume 7.7 fL (7.5-11.2); Nucleated Red Blood Cells % 0.5 /100 WBC (0.0-0.4); Platelet Count 141 10^3/uL (150-450); Red Cell Distribution Width 20.4 % (12-17); White Blood Count 4.2 10^3/uL (3.6-10.2)
[2023-01-10] MEDS ORDERED: Glycerin ADULT 2.4 gm SUPP PR ONE (11:14)
[2023-01-10] MEDS ORDERED: Magnesium Hydroxide LIQ 30 ML UDC PO ONE (11:14)
[2023-01-10] MEDS ORDERED: Polyethylene Glycol 3350 17 GM PACKET PO ONE (11:15)
[2023-01-10 12:08] LABS: ABS Basophils 0.1 10^3/uL (0.0-0.1); ABS Eosinophils 0.1 10^3/uL (0.0-0.5); ABS Lymphocytes 0.6 10^3/uL (1.0-4.8); ABS Monocytes 0.9 10^3/uL (0.0-1.1); ABS Nucleated RBC 0.01 10^3/ul; Eosinophil % 2.5 %; Hematocrit 30.2 % (38-53); Hemoglobin 10.4 g/dL (13.2-16.3); Lymphocyte % 13.3 %; Mean Corpuscular Hemoglobin 33.9 pg (27-33); Mean Corpuscular Hgb Conc 34.4 g/dL (31-36); Mean Corpuscular Volume 98.5 fL (80-97); Mean Platelet Volume 6.9 fL (7.5-11.2); Nucleated Red Blood Cells % 0.2 /100 WBC (0.0-0.4); Platelet Count 179 10^3/uL (150-450); Red Blood Count 3.07 10^6/uL (4.06-5.63); Red Cell Distribution Width 20.7 % (12-17); White Blood Count 4.7 10^3/uL (3.6-10.2)
[2023-01-10 12:51] LABS: Creatinine, Serum 1.37 mg/dL (0.67-1.17); eGFR CKD-EPI 55.8 (>60)
[2023-01-10] MEDS ORDERED: Heparin DRIP 25,000 UNITS BAG 25,000 UNITS/500 ML BAG IV SCH (15:15)
[2023-01-10] MEDS ORDERED: Heparin 5000 UNITS/ML 1 mL VIAL IV SCH (16:00)
[2023-01-10] MEDS: Heparin DRIP 25,000 UNITS BAG 25,000 UNITS/500 ML BAG IV SCH (17:44)
[2023-01-10] MEDS: Senna TAB 8.6 mg TAB PO SCH (20:01)
[2023-01-10] MEDS: Magnesium Hydroxide LIQ 30 ML UDC PO SCH (20:01)
[2023-01-11 06:21] LABS: ABS Basophils 0.1 10^3/uL (0.0-0.1); ABS Eosinophils 0.2 10^3/uL (0.0-0.5); ABS Monocytes 0.9 10^3/uL (0.0-1.1); ABS Neutrophils 1.9 10^3/uL (1.5-7.6); ABS Nucleated RBC 0.01 10^3/ul; Hematocrit 29.4 % (38-53); Hemoglobin 10.2 g/dL (13.2-16.3); Lymphocyte % 23.5 %; Mean Corpuscular Hemoglobin 33.8 pg (27-33); Mean Corpuscular Hgb Conc 34.7 g/dL (31-36); Mean Corpuscular Volume 97.7 fL (80-97); Mean Platelet Volume 7.1 fL (7.5-11.2); Nucleated Red Blood Cells % 0.3 /100 WBC (0.0-0.4); Platelet Count 170 10^3/uL (150-450); Red Blood Count 3.01 10^6/uL (4.06-5.63); Red Cell Distribution Width 20.7 % (12-17); White Blood Count 4.2 10^3/uL (3.6-10.2)
[2023-01-11 06:50] LABS: Calcium 8.7 mg/dL (8.6-10.3); Creatinine, Serum 1.42 mg/dL (0.67-1.17); Magnesium 2.1 mg/dL (1.9-2.7); Potassium 4.7 mmol/L (3.5-5.0); eGFR CKD-EPI 53.5 (>60)
[2023-01-11] MEDS: Cholecalciferol (VIT D3) 1,000 unit TAB PO SCH (09:17)
[2023-01-11] MEDS: Magnesium Hydroxide LIQ 30 ML UDC PO SCH ×2 (09:19→19:59)
[2023-01-11] MEDS: Heparin 5000 UNITS/ML 1 mL VIAL IV SCH (14:23)
[2023-01-11 15:15] LABS: Hepatitis C Antibody Negative (Negative)
[2023-01-11] MEDS: Senna TAB 8.6 mg TAB PO SCH (19:59)
[2023-01-11 21:38] LABS: HIV 4th Generation Nonreactive (Nonreactive)
[2023-01-12 02:42] LABS: Hematocrit 27.5 % (38-53); Hemoglobin 9.6 g/dL (13.2-16.3); Mean Corpuscular Hemoglobin 33.8 pg (27-33); Mean Corpuscular Hgb Conc 34.9 g/dL (31-36); Mean Corpuscular Volume 96.8 fL (80-97); Mean Platelet Volume 7.3 fL (7.5-11.2); Platelet Count 166 10^3/uL (150-450); Red Blood Count 2.85 10^6/uL (4.06-5.63); Red Cell Distribution Width 20.4 % (12-17); White Blood Count 4.8 10^3/uL (3.6-10.2)
[2023-01-12 02:53] LABS: ABS Basophils 0.1 10^3/uL (0.0-0.1); ABS Eosinophils 0.2 10^3/uL (0.0-0.5); ABS Lymphocytes 0.9 10^3/uL (1.0-4.8); ABS Monocytes 1.1 10^3/uL (0.0-1.1); ABS Neutrophils 2.6 10^3/uL (1.5-7.6); ABS Nucleated RBC 0.01 10^3/ul; Eosinophil % 3.9 %; Lymphocyte % 17.8 %; Nucleated Red Blood Cells % 0.1 /100 WBC (0.0-0.4)
[2023-01-12 03:11] LABS: Calcium 8.4 mg/dL (8.6-10.3); Creatinine, Serum 1.48 mg/dL (0.67-1.17); Magnesium 1.8 mg/dL (1.9-2.7); Potassium 4.4 mmol/L (3.5-5.0); eGFR CKD-EPI 50.9 (>60)
[2023-01-12] MEDS: Heparin DRIP 25,000 UNITS BAG 25,000 UNITS/500 ML BAG IV SCH (03:24)
[2023-01-12] MEDS: Heparin 5000 UNITS/ML 1 mL VIAL IV SCH ×2 (03:31→10:20)
[2023-01-12] MEDS ORDERED: Magnesium Sulfate IV 1GM/100ML 1 GM/100 ML BAG IV ONE (07:43)
[2023-01-12] MEDS: Cholecalciferol (VIT D3) 1,000 unit TAB PO SCH (08:32)
[2023-01-12] MEDS: Enoxaparin 100 MG/ML SYR SUBCUT SCH (17:08)
[2023-01-12] MEDS: Senna TAB 8.6 mg TAB PO SCH (21:15)
[2023-01-13] MEDS: Enoxaparin 100 MG/ML SYR SUBCUT SCH (04:52)
[2023-01-13 06:09] LABS: ABS Basophils 0.1 10^3/uL (0.0-0.1); ABS Eosinophils 0.3 10^3/uL (0.0-0.5); ABS Lymphocytes 0.9 10^3/uL (1.0-4.8); ABS Neutrophils 2.4 10^3/uL (1.5-7.6); ABS Nucleated RBC 0.01 10^3/ul; Eosinophil % 5.5 %; Hematocrit 26.2 % (38-53); Hemoglobin 9.1 g/dL (13.2-16.3); Lymphocyte % 19.8 %; Mean Corpuscular Hemoglobin 34.4 pg (27-33); Mean Corpuscular Hgb Conc 34.9 g/dL (31-36); Mean Corpuscular Volume 98.6 fL (80-97); Mean Platelet Volume 7.7 fL (7.5-11.2); Nucleated Red Blood Cells % 0.2 /100 WBC (0.0-0.4); Platelet Count 181 10^3/uL (150-450); Red Blood Count 2.65 10^6/uL (4.06-5.63); Red Cell Distribution Width 20.8 % (12-17); White Blood Count 4.7 10^3/uL (3.6-10.2)
[2023-01-13 06:28] LABS: Calcium 8.4 mg/dL (8.6-10.3); Creatinine, Serum 1.46 mg/dL (0.67-1.17); Magnesium 1.7 mg/dL (1.9-2.7); eGFR CKD-EPI 51.7 (>60)
[2023-01-13] MEDS ORDERED: Magnesium Sulfate 2 gm BAG 2 GM/50 ML BAG IVPB ONE (07:02)
[2023-01-13] MEDS: Cholecalciferol (VIT D3) 1,000 unit TAB PO SCH (08:05)
[2023-01-13] MEDS ORDERED: Enoxaparin 100 MG/ML SYR SUBCUT ONE (17:00)
[2023-01-13] MEDS ORDERED: Lidocaine 1% MPF 5 ML VIAL INJ ONE (17:07)
[2023-01-13] MEDS: Senna TAB 8.6 mg TAB PO SCH (21:30)
[2023-01-14] MEDS ORDERED: Lactated Ringers 1000 ml BAG 1,000 ML IV SCH (06:00)
[2023-01-14] MEDS ORDERED: Buffered Lidocaine 1% SYRIN 1 ml INTRADERM ONE (06:00)
[2023-01-14 06:36] LABS: ABS Basophils 0.1 10^3/uL (0.0-0.1); ABS Eosinophils 0.3 10^3/uL (0.0-0.5); ABS Lymphocytes 0.9 10^3/uL (1.0-4.8); ABS Monocytes 0.9 10^3/uL (0.0-1.1); ABS Neutrophils 2.3 10^3/uL (1.5-7.6); ABS Nucleated RBC 0.01 10^3/ul; Eosinophil % 5.8 %; Hematocrit 25.7 % (38-53); Hemoglobin 8.9 g/dL (13.2-16.3); Lymphocyte % 19.4 %; Mean Corpuscular Hemoglobin 34.2 pg (27-33); Mean Corpuscular Hgb Conc 34.8 g/dL (31-36); Mean Corpuscular Volume 98.4 fL (80-97); Mean Platelet Volume 7.6 fL (7.5-11.2); Nucleated Red Blood Cells % 0.1 /100 WBC (0.0-0.4); Platelet Count 198 10^3/uL (150-450); Red Blood Count 2.61 10^6/uL (4.06-5.63); Red Cell Distribution Width 21.1 % (12-17); White Blood Count 4.4 10^3/uL (3.6-10.2)
[2023-01-14 06:38] LABS: INR 1.28 (0.88-1.18)
[2023-01-14 06:58] LABS: Calcium 8.3 mg/dL (8.6-10.3); Creatinine, Serum 1.5 mg/dL (0.67-1.17); Magnesium 1.6 mg/dL (1.9-2.7); Potassium 3.8 mmol/L (3.5-5.0); eGFR CKD-EPI 50.1 (>60)
[2023-01-14] MEDS ORDERED: Magnesium Sulf 4 GM/100 ML IV 4,000 MG/100 ML BAG IVPB ONE (08:03)
[2023-01-14] MEDS: Cholecalciferol (VIT D3) 1,000 unit TAB PO SCH (09:59)
[2023-01-14] MEDS ORDERED: Norepinephrine IV 1 MG/ML 4 ML VIAL ONE (10:20)
[2023-01-14] MEDS ORDERED: Bupivacaine 0.25% SDV 30 ML ONE (10:25)
[2023-01-14] MEDS ORDERED: Lidocaine 1% MPF 5 ML VIAL ONE (10:25)
[2023-01-14] MEDS ORDERED: ceFAZolin 2 GM PREMIX 2 GM/50 ML BAG ONE (10:48)
[2023-01-14] MEDS ORDERED: Rocuronium 50 mg VIAL 10 mg/ml 5 ml VIAL (50 mg) ONE (13:01)
[2023-01-14 13:19] LABS: Albumin 2.1 g/dL (3.4-4.7); Flag, M-protein Isotype Negative (Negative); Total Protein 5.5 g/dL (6.3 - 7.9)
[2023-01-14 13:24] LABS: Hematocrit 27.6 % (38-53); Hemoglobin 9.4 g/dL (13.2-16.3)
[2023-01-14] MEDS ORDERED: Dexamethasone IV 4 MG/ML VIAL 1 ml VIAL ONE (13:39)
[2023-01-14] MEDS ORDERED: Ondansetron 4 mg VIAL 2 MG/ML 2 ml VIAL ONE (13:39)
[2023-01-14 13:55] LABS: Albumin 4.4 mg/dL; Albumin/Globulin Ratio 0.27; Creatinine, Random, U 122 mg/dL (16 - 326); Gamma Globulin 5.5 mg/dL; Protein,Total, Random Urine 21 mg/dL; Protein/Creatinine Ratio 0.17 mg/mg (<0.18)
[2023-01-14] MEDS ORDERED: fentaNYL 100 mcg/2 ml 50 MCG/ML VIAL ONE ×2 (15:08→16:04)
[2023-01-14] MEDS ORDERED: Phenylephrine IV 10 MG/ML 1 ml VIAL ONE (15:47)
[2023-01-14] MEDS ORDERED: Naloxone 0.4 mg VIAL 0.4 mg/ml 1 ml VIAL IV PRN (16:03)
[2023-01-14] MEDS: fentaNYL 100 mcg/2 ml 50 MCG/ML VIAL IV PRN ×4 (16:09→16:40)
[2023-01-14] MEDS ORDERED: ceFAZolin 2 GM in NS PREMIX 2 GM/100 ML BAG IVPB SCH (20:00)
[2023-01-14] MEDS: ceFAZolin 2 GM PREMIX 2 GM/50 ML BAG IV SCH (20:46)
[2023-01-14] MEDS: Senna TAB 8.6 mg TAB PO SCH (20:49)
[2023-01-15] MEDS: ceFAZolin 2 GM PREMIX 2 GM/50 ML BAG IV SCH ×2 (04:09→11:59)
[2023-01-15 06:43] LABS: ABS Lymphocytes 0.4 10^3/uL (1.0-4.8); ABS Monocytes 0.7 10^3/uL (0.0-1.1); ABS Neutrophils 5.7 10^3/uL (1.5-7.6); ABS Nucleated RBC 0.01 10^3/ul; Hemoglobin 7.3 g/dL (13.2-16.3); Lymphocyte % 5.8 %; Mean Corpuscular Hemoglobin 34.3 pg (27-33); Mean Corpuscular Hgb Conc 34.7 g/dL (31-36); Mean Corpuscular Volume 98.7 fL (80-97); Mean Platelet Volume 7.6 fL (7.5-11.2); Nucleated Red Blood Cells % 0.1 /100 WBC (0.0-0.4); Platelet Count 221 10^3/uL (150-450); Red Blood Count 2.12 10^6/uL (4.06-5.63); Red Cell Distribution Width 20.5 % (12-17); White Blood Count 6.8 10^3/uL (3.6-10.2)
[2023-01-15 06:55] LABS: Calcium 7.7 mg/dL (8.6-10.3); Potassium 4.5 mmol/L (3.5-5.0)
[2023-01-15 07:01] LABS: Creatinine, Serum 1.93 mg/dL (0.67-1.17)
[2023-01-15] MEDS: Polyethylene Glycol 3350 17 GM PACKET PO PRN (08:41)
[2023-01-15] MEDS: Cholecalciferol (VIT D3) 1,000 unit TAB PO SCH (08:41)
[2023-01-15 10:53] LABS: Magnesium 2.2 mg/dL (1.9-2.7)
[2023-01-15 13:25] LABS: Hematocrit 21.8 % (38-53); Hemoglobin 7.3 g/dL (13.2-16.3)
[2023-01-15] MEDS ORDERED: Heparin 5000 UNITS/ML 1 mL VIAL IV SCH (14:00)
[2023-01-15 14:21] LABS: Calcium 8.1 mg/dL (8.6-10.3); Creatinine, Serum 2.37 mg/dL (0.67-1.17); Potassium 4.4 mmol/L (3.5-5.0); eGFR CKD-EPI 28.9 (>60)
[2023-01-15] MEDS: Heparin DRIP 25,000 UNITS BAG 25,000 UNITS/500 ML BAG IV SCH (15:30)
[2023-01-15] MEDS: Senna TAB 8.6 mg TAB PO SCH (21:18)
[2023-01-16 02:46] LABS: ABS Lymphocytes 0.6 10^3/uL (1.0-4.8); ABS Monocytes 1.2 10^3/uL (0.0-1.1); ABS Neutrophils 7.5 10^3/uL (1.5-7.6); ABS Nucleated RBC 0.01 10^3/ul; Eosinophil % 0.1 %; Hematocrit 24.5 % (38-53); Hemoglobin 8.5 g/dL (13.2-16.3); Lymphocyte % 6.2 %; Mean Corpuscular Hemoglobin 33.2 pg (27-33); Mean Corpuscular Hgb Conc 34.6 g/dL (31-36); Mean Corpuscular Volume 95.9 fL (80-97); Mean Platelet Volume 7.2 fL (7.5-11.2); Nucleated Red Blood Cells % 0.1 /100 WBC (0.0-0.4); Platelet Count 250 10^3/uL (150-450); Red Blood Count 2.55 10^6/uL (4.06-5.63); Red Cell Distribution Width 20.2 % (12-17); White Blood Count 9.3 10^3/uL (3.6-10.2)
[2023-01-16 03:17] LABS: Calcium 7.9 mg/dL (8.6-10.3); Creatinine, Serum 2.32 mg/dL (0.67-1.17); Magnesium 2.2 mg/dL (1.9-2.7); Potassium 4.6 mmol/L (3.5-5.0); eGFR CKD-EPI 29.7 (>60)
[2023-01-16] MEDS: Cholecalciferol (VIT D3) 1,000 unit TAB PO SCH (09:32)
[2023-01-16] MEDS: Polyethylene Glycol 3350 17 GM PACKET PO PRN (09:34)
[2023-01-16] MEDS: Heparin DRIP 25,000 UNITS BAG 25,000 UNITS/500 ML BAG IV SCH (14:21)
[2023-01-16] MEDS: Senna TAB 8.6 mg TAB PO SCH (20:53)
[2023-01-17 05:23] LABS: ABS Eosinophils 0.1 10^3/uL (0.0-0.5); ABS Lymphocytes 0.7 10^3/uL (1.0-4.8); ABS Monocytes 1.4 10^3/uL (0.0-1.1); ABS Neutrophils 6.5 10^3/uL (1.5-7.6); ABS Nucleated RBC 0.01 10^3/ul; Eosinophil % 1.1 %; Hematocrit 22.4 % (38-53); Hemoglobin 7.6 g/dL (13.2-16.3); Lymphocyte % 8.4 %; Mean Corpuscular Hemoglobin 32.5 pg (27-33); Mean Corpuscular Hgb Conc 33.8 g/dL (31-36); Mean Platelet Volume 7.1 fL (7.5-11.2); Nucleated Red Blood Cells % 0.1 /100 WBC (0.0-0.4); Platelet Count 245 10^3/uL (150-450); Red Blood Count 2.34 10^6/uL (4.06-5.63); Red Cell Distribution Width 20.3 % (12-17); White Blood Count 8.7 10^3/uL (3.6-10.2)
[2023-01-17 05:48] LABS: Urine Appearance Clear; Urine Bilirubin Negative (Negative); Urine Blood 1+ (Negative); Urine Color Yellow; Urine Glucose Negative (Negative); Urine Ketones Negative (Negative); Urine Nitrite Negative (Negative); Urine Protein Negative (Negative); Urine Specific Gravity 1.012 (1.002-1.030); Urine Urobilinogen Negative (Negative)
[2023-01-17 06:02] LABS: Urine Bacteria Absent (Absent); Urine Red Blood Cell Trace(0-2/hpf) (Absent); Urine White Blood Cell Trace(0-5/hpf) (Absent)
[2023-01-17 06:17] LABS: Creatinine, Serum 2.06 mg/dL (0.67-1.17); Magnesium 2.3 mg/dL (1.9-2.7); Potassium 4.4 mmol/L (3.5-5.0); eGFR CKD-EPI 34.2 (>60)
[2023-01-17] MEDS: Cholecalciferol (VIT D3) 1,000 unit TAB PO SCH (09:14)
[2023-01-17] MEDS: Polyethylene Glycol 3350 17 GM PACKET PO PRN (09:14)
[2023-01-17] MEDS ORDERED: Senna TAB 8.6 mg TAB PO SCH ×2 (09:37→09:39)
[2023-01-17] MEDS ORDERED: Polyethylene Glycol 3350 17 GM PACKET PO SCH (10:00)
[2023-01-17] MEDS: Polyethylene Glycol 3350 17 GM PACKET PO SCH (10:18)
[2023-01-17] MEDS: Senna TAB 8.6 mg TAB PO SCH ×2 (10:39→23:21)
[2023-01-17 12:20] LABS: Hematocrit 23.1 % (38-53)
[2023-01-17] MEDS ORDERED: Lactulose 30 ml UDC PO ONE (14:15)
[2023-01-18] MEDS: Heparin DRIP 25,000 UNITS BAG 25,000 UNITS/500 ML BAG IV SCH ×2 (04:06→19:34)
[2023-01-18 06:21] LABS: ABS Basophils 0.1 10^3/uL (0.0-0.1); ABS Eosinophils 0.3 10^3/uL (0.0-0.5); ABS Lymphocytes 0.8 10^3/uL (1.0-4.8); ABS Monocytes 1.3 10^3/uL (0.0-1.1); ABS Neutrophils 4.9 10^3/uL (1.5-7.6); ABS Nucleated RBC 0.01 10^3/ul; Eosinophil % 3.5 %; Hematocrit 21.5 % (38-53); Hemoglobin 7.4 g/dL (13.2-16.3); Lymphocyte % 11.1 %; Mean Corpuscular Hemoglobin 33.2 pg (27-33); Mean Corpuscular Hgb Conc 34.3 g/dL (31-36); Mean Corpuscular Volume 96.8 fL (80-97); Nucleated Red Blood Cells % 0.2 /100 WBC (0.0-0.4); Platelet Count 240 10^3/uL (150-450); Red Blood Count 2.22 10^6/uL (4.06-5.63); Red Cell Distribution Width 20.5 % (12-17); White Blood Count 7.3 10^3/uL (3.6-10.2)
[2023-01-18 07:22] LABS: Calcium 8.1 mg/dL (8.6-10.3); Creatinine, Serum 1.78 mg/dL (0.67-1.17); Potassium 3.9 mmol/L (3.5-5.0); eGFR CKD-EPI 40.8 (>60)
[2023-01-18] MEDS: Senna TAB 8.6 mg TAB PO SCH ×2 (07:55→20:08)
[2023-01-18] MEDS: Cholecalciferol (VIT D3) 1,000 unit TAB PO SCH (07:56)
[2023-01-18] MEDS: Polyethylene Glycol 3350 17 GM PACKET PO SCH (09:21)
[2023-01-18] MEDS ORDERED: Bumetanide IV 0.25 MG/ML 4 ml VIAL (1 mg) IV SLOW PU ONE ×2 (12:00)
[2023-01-18 16:56] LABS: Hematocrit 25.8 % (38-53)
[2023-01-19 05:51] LABS: ABS Basophils 0.1 10^3/uL (0.0-0.1); ABS Eosinophils 0.3 10^3/uL (0.0-0.5); ABS Lymphocytes 0.8 10^3/uL (1.0-4.8); ABS Monocytes 1.1 10^3/uL (0.0-1.1); ABS Neutrophils 3.6 10^3/uL (1.5-7.6); ABS Nucleated RBC 0.01 10^3/ul; Eosinophil % 4.7 %; Hematocrit 25.8 % (38-53); Hemoglobin 8.9 g/dL (13.2-16.3); Lymphocyte % 14.1 %; Mean Corpuscular Hemoglobin 32.4 pg (27-33); Mean Corpuscular Hgb Conc 34.3 g/dL (31-36); Mean Corpuscular Volume 94.6 fL (80-97); Nucleated Red Blood Cells % 0.2 /100 WBC (0.0-0.4); Platelet Count 244 10^3/uL (150-450); Red Blood Count 2.73 10^6/uL (4.06-5.63); Red Cell Distribution Width 20.6 % (12-17); White Blood Count 5.9 10^3/uL (3.6-10.2)
[2023-01-19 06:24] LABS: Calcium 8.2 mg/dL (8.6-10.3); Creatinine, Serum 1.52 mg/dL (0.67-1.17); Magnesium 1.7 mg/dL (1.9-2.7); Potassium 3.5 mmol/L (3.5-5.0); eGFR CKD-EPI 49.3 (>60)
[2023-01-19] MEDS ORDERED: Magnesium Sulfate IV 3 GM in NS 0.9% 100 ml BAG 100 ML IVPB ONE (07:18)
[2023-01-19] MEDS: Polyethylene Glycol 3350 17 GM PACKET PO SCH (08:45)
[2023-01-19] MEDS: Cholecalciferol (VIT D3) 1,000 unit TAB PO SCH (08:51)
[2023-01-19] MEDS: Senna TAB 8.6 mg TAB PO SCH ×2 (08:52→20:51)
[2023-01-19] MEDS ORDERED: Bumetanide IV 0.25 MG/ML 4 ml VIAL (1 mg) IV SLOW PU ONE (14:52)
[2023-01-20] MEDS: Polyethylene Glycol 3350 17 GM PACKET PO SCH (07:24)
[2023-01-20] MEDS: Cholecalciferol (VIT D3) 1,000 unit TAB PO SCH (07:24)
[2023-01-20] MEDS: Senna TAB 8.6 mg TAB PO SCH ×2 (07:25→21:25)
[2023-01-20 08:36] LABS: Calcium 8.2 mg/dL (8.6-10.3); Creatinine, Serum 1.23 mg/dL (0.67-1.17); Potassium 3.3 mmol/L (3.5-5.0); eGFR CKD-EPI 63.6 (>60)
[2023-01-20] MEDS ORDERED: Potassium Chlor 20 meq TAB.ER PO ONE ×2 (09:28→11:00)
[2023-01-20] MEDS ORDERED: Bumetanide IV 0.25 MG/ML 4 ml VIAL (1 mg) IV SLOW PU ONE (09:28)
[2023-01-20 09:51] LABS: Magnesium 1.5 mg/dL (1.9-2.7)
[2023-01-20] MEDS ORDERED: Magnesium Sulf 4 GM/100 ML IV 4,000 MG/100 ML BAG IVPB ONE (09:52)
[2023-01-20 11:17] LABS: ABS Eosinophils 0.1 10^3/uL (0.0-0.5); ABS Lymphocytes 0.7 10^3/uL (1.0-4.8); ABS Monocytes 0.8 10^3/uL (0.0-1.1); ABS Neutrophils 2.8 10^3/uL (1.5-7.6); ABS Nucleated RBC 0.01 10^3/ul; Eosinophil % 3.2 %; Hematocrit 25.3 % (38-53); Hemoglobin 8.5 g/dL (13.2-16.3); Lymphocyte % 15.1 %; Mean Corpuscular Hemoglobin 31.9 pg (27-33); Mean Corpuscular Hgb Conc 33.7 g/dL (31-36); Mean Corpuscular Volume 94.7 fL (80-97); Nucleated Red Blood Cells % 0.1 /100 WBC (0.0-0.4); Platelet Count 208 10^3/uL (150-450); Red Blood Count 2.67 10^6/uL (4.06-5.63); Red Cell Distribution Width 21.1 % (12-17); White Blood Count 4.5 10^3/uL (3.6-10.2)
[2023-01-21 06:46] LABS: ABS Basophils 0.1 10^3/uL (0.0-0.1); ABS Eosinophils 0.2 10^3/uL (0.0-0.5); ABS Lymphocytes 0.7 10^3/uL (1.0-4.8); ABS Monocytes 0.9 10^3/uL (0.0-1.1); ABS Neutrophils 2.8 10^3/uL (1.5-7.6); Eosinophil % 4.6 %; Hematocrit 26.4 % (38-53); Lymphocyte % 14.7 %; Mean Corpuscular Hemoglobin 32.9 pg (27-33); Mean Corpuscular Hgb Conc 34.1 g/dL (31-36); Mean Corpuscular Volume 96.6 fL (80-97); Nucleated Red Blood Cells % 0.1 /100 WBC (0.0-0.4); Platelet Count 217 10^3/uL (150-450); Red Blood Count 2.73 10^6/uL (4.06-5.63); Red Cell Distribution Width 20.9 % (12-17); White Blood Count 4.7 10^3/uL (3.6-10.2)
[2023-01-21 07:16] LABS: Calcium 8.2 mg/dL (8.6-10.3); Creatinine, Serum 1.33 mg/dL (0.67-1.17); Magnesium 1.9 mg/dL (1.9-2.7); Potassium 3.7 mmol/L (3.5-5.0); eGFR CKD-EPI 57.9 (>60)
[2023-01-21] MEDS: Polyethylene Glycol 3350 17 GM PACKET PO SCH (08:43)
[2023-01-21] MEDS: Cholecalciferol (VIT D3) 1,000 unit TAB PO SCH (08:45)
[2023-01-21] MEDS: Senna TAB 8.6 mg TAB PO SCH ×2 (08:46→21:20)
[2023-01-21 20:19] LABS: Phospholipid Ab IgG 11.6 GPL; Phospholipid Ab IgM, S < 9.4 MPL
[2023-01-21 21:17] LABS: Beta 2 Glycoprotein IgG <9.4 SGU
[2023-01-22 05:38] LABS: ABS Basophils 0.1 10^3/uL (0.0-0.1); ABS Eosinophils 0.3 10^3/uL (0.0-0.5); ABS Lymphocytes 0.8 10^3/uL (1.0-4.8); ABS Monocytes 0.8 10^3/uL (0.0-1.1); ABS Neutrophils 2.2 10^3/uL (1.5-7.6); ABS Nucleated RBC 0.01 10^3/ul; Eosinophil % 7.5 %; Hemoglobin 8.5 g/dL (13.2-16.3); Lymphocyte % 19.4 %; Mean Corpuscular Hgb Conc 34.1 g/dL (31-36); Mean Corpuscular Volume 96.9 fL (80-97); Mean Platelet Volume 6.6 fL (7.5-11.2); Nucleated Red Blood Cells % 0.1 /100 WBC (0.0-0.4); Platelet Count 197 10^3/uL (150-450); Red Blood Count 2.58 10^6/uL (4.06-5.63); Red Cell Distribution Width 20.9 % (12-17); White Blood Count 4.2 10^3/uL (3.6-10.2)
[2023-01-22 06:04] LABS: Calcium 8.2 mg/dL (8.6-10.3); Creatinine, Serum 1.31 mg/dL (0.67-1.17); Magnesium 1.7 mg/dL (1.9-2.7); Potassium 3.6 mmol/L (3.5-5.0); eGFR CKD-EPI 58.9 (>60)
[2023-01-22] MEDS ORDERED: Magnesium Sulfate IV 3 GM in NS 0.9% 100 ml BAG 100 ML IVPB ONE (07:17)
[2023-01-22] MEDS: Cholecalciferol (VIT D3) 1,000 unit TAB PO SCH (08:55)
[2023-01-22] MEDS: Senna TAB 8.6 mg TAB PO SCH (08:56)
[2023-01-22] MEDS: Polyethylene Glycol 3350 17 GM PACKET PO SCH (08:56)
[2023-01-22 14:21] VITALS: BP 100/43
[2023-01-23 10:43] LABS: DRVVT Screen Ratio 0.81 ratio (<1.20); LAC APTT 85 sec (25 - 37); LAC INR 1.4 (0.9-1.1)
[2023-01-23 11:28] LABS: Thrombin Time (Bovine), P 72.7 sec
== END 2023-01-22 14:36 | DRG 483 ==
LOC: ED 12:13 → EDHOLD 19:11 → SUATTDRO 19:11 → MED 01-08 18:18 → SSU 01-14 17:27
PROVIDERS: ADMIT Internal Medicine; ATTEND Internal Medicine

== ENCOUNTER 2023-02-04 11:08 | Observation (INO) ==
[~2023-02-04 11:08] MED LIST: Buffered Lidocaine 1% SYRIN 1 ml INTRADERM ONE; Famotidine IV 10 MG/ML 2 ml VIAL (20 mg) IV ONE; Lactated Ringers 1000 ml BAG 1,000 ML IV SCH
[2023-02-04 11:54] LABS: Rapid COVID-19 Molecular Undetected (Undetected)
[2023-02-04] MEDS ORDERED: Famotidine IV 10 MG/ML 2 ml VIAL (20 mg) ONE (12:13)
[2023-02-04] MEDS ORDERED: Succinylcholine 200 mg VIAL 20 mg/ml 10 ml VIAL (200 mg) ONE (12:27)
[2023-02-04] MEDS ORDERED: Dexamethasone IV 4 MG/ML VIAL 1 ml VIAL ONE (12:27)
[2023-02-04] MEDS ORDERED: Rocuronium 50 mg VIAL 10 mg/ml 5 ml VIAL (50 mg) ONE (12:27)
[2023-02-04] MEDS ORDERED: fentaNYL 100 mcg/2 ml 50 MCG/ML VIAL ONE ×2 (12:27→16:18)
[2023-02-04] MEDS ORDERED: Ondansetron 4 mg VIAL 2 MG/ML 2 ml VIAL ONE (12:27)
[2023-02-04] MEDS ORDERED: Lidocaine 2% PF 5 ML VIAL ONE (12:27)
[2023-02-04] MEDS ORDERED: Propofol 10 MG/ML 20 ML BTL ONE (12:27)
[2023-02-04] MEDS ORDERED: Midazolam 2 mg/2 ml VIAL 1 mg/ml 2 ml VIAL (2 mg) ONE (12:27)
[2023-02-04] MEDS ORDERED: Phenylephrine 40 mcg/mL 10mL (400mcg) SYRINGE ONE (12:27)
[2023-02-04 12:59] LABS: Hematocrit 31.6 % (38-53); Hemoglobin 10.6 g/dL (13.2-16.3); Mean Corpuscular Hemoglobin 32.3 pg (27-33); Mean Corpuscular Hgb Conc 33.6 g/dL (31-36); Mean Corpuscular Volume 96.2 fL (80-97); Mean Platelet Volume 8.3 fL (7.5-11.2); Platelet Count 119 10^3/uL (150-450); Red Blood Count 3.29 10^6/uL (4.06-5.63); Red Cell Distribution Width 19.2 % (12-17); White Blood Count 3.1 10^3/uL (3.6-10.2)
[2023-02-04] MEDS ORDERED: ceFAZolin 2 GM PREMIX 2 GM/50 ML BAG ONE (13:03)
[2023-02-04 13:44] LABS: Calcium 8.8 mg/dL (8.6-10.3); Creatinine, Serum 1.19 mg/dL (0.67-1.17); Potassium 3.5 mmol/L (3.5-5.0); eGFR CKD-EPI 66.1 (>60)
[2023-02-04] MEDS ORDERED: Bupivacaine 0.5% W/EPI SDV 10 ML VIAL INJ ONE (14:32)
[2023-02-04] MEDS ORDERED: fentaNYL 250 mcg/5 ml 50 MCG/ML 5 ml VIAL (250 MCG) ONE (14:57)
[2023-02-04] MEDS ORDERED: Lactulose 30 ml UDC PO PRN (15:24)
[2023-02-04] MEDS ORDERED: Morphine 2 MG/ML SYRINGE IV PRN (15:24)
[2023-02-04] MEDS ORDERED: Ondansetron ODT 4 mg TAB 4 MG TAB PO PRN (15:24)
[2023-02-04] MEDS ORDERED: Ondansetron 4 mg VIAL 2 MG/ML 2 ml VIAL IV PRN (15:24)
[2023-02-04] MEDS ORDERED: Magnesium Hydroxide LIQ 30 ML UDC PO PRN (15:24)
[2023-02-04] MEDS ORDERED: Lactated Ringers 1000 ml BAG 1,000 ML IV SCH (16:00)
[2023-02-04] MEDS ORDERED: Prochlorperazine 5 mg/ml 2 ml VIAL (10 mg) IV PRN (16:13)
[2023-02-04] MEDS ORDERED: Morphine 4 MG/ML VIAL (1 ml) IV PRN (16:13)
[2023-02-04] MEDS ORDERED: Naloxone 0.4 mg VIAL 0.4 mg/ml 1 ml VIAL IV PRN (16:13)
[2023-02-04] MEDS: fentaNYL 100 mcg/2 ml 50 MCG/ML VIAL IV PRN ×4 (16:20→16:29)
[2023-02-04] MEDS: Magnesium Hydroxide LIQ 30 ML UDC PO SCH (21:00)
[2023-02-05] MEDS: ceFAZolin 1 GM ADVAN 1 GM in NS 0.9% 50 ML 50 ML IVPB SCH ×3 (01:08→13:38)
[2023-02-05 06:10] LABS: ABS Lymphocytes 0.3 10^3/uL (1.0-4.8); ABS Monocytes 0.2 10^3/uL (0.0-1.1); ABS Neutrophils 2.4 10^3/uL (1.5-7.6); Hematocrit 26.3 % (38-53); Lymphocyte % 11.6 %; Mean Corpuscular Hemoglobin 32.7 pg (27-33); Mean Corpuscular Hgb Conc 34.5 g/dL (31-36); Mean Corpuscular Volume 94.9 fL (80-97); Mean Platelet Volume 7.1 fL (7.5-11.2); Platelet Count 145 10^3/uL (150-450); Red Blood Count 2.77 10^6/uL (4.06-5.63); Red Cell Distribution Width 18.4 % (12-17)
[2023-02-05 06:42] LABS: Calcium 8.4 mg/dL (8.6-10.3); Creatinine, Serum 1.46 mg/dL (0.67-1.17); Magnesium 1.5 mg/dL (1.9-2.7); Potassium 3.9 mmol/L (3.5-5.0); eGFR CKD-EPI 51.7 (>60)
[2023-02-05] MEDS ORDERED: Magnesium Sulfate IV 3 GM in NS 0.9% 100 ml BAG 100 ML IVPB ONE (08:39)
[2023-02-05] MEDS: Magnesium Hydroxide LIQ 30 ML UDC PO SCH (08:47)
[2023-02-05] MEDS ORDERED: Vitamin THERAPEUTIC TAB PO SCH (09:00)
[2023-02-05] MEDS ORDERED: Potassium Chlor 10 meq TAB PO SCH (09:00)
[2023-02-05 14:20] VITALS: BP 115/73
== END 2023-02-05 17:00 ==
LOC: OR 11:08 → SSU 11:08
PROVIDERS: ADMIT Orthopaedic Surgery Sports Medicine; ATTEND Orthopaedic Surgery Sports Medicine